=== PATIENT | male | born 1985 | race Caucasian/White ===

== ENCOUNTER 2020-09-05 05:28 | Emergency (ER) | payer MEDICAID ==
[~2020-09-05] VITALS: Ht 185.4 cm; Wt 111.5 kg
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
[2020-09-05 07:09] LABS: BASOPHILS % (AUTO) 1 % (0-1); EOSINOPHILS % (AUTO) 2 % (1-7); LYMPHOCYTES % (AUTO) 37 % (22-44); MEAN CORPUSCULAR HEMOGLOBIN 29.7 pg (27.5-34.5); MEAN CORPUSCULAR HGB CONC 33.8 g/dL (33.2-36.2); MEAN PLATELET VOLUME 7.6 fL (7.4-10.4); MONOCYTES % (AUTO) 8 % (2-9); NEUTROPHILS % (AUTO) 52 % (42-75); PLATELET COUNT 277 x10^3/uL (130-400); RED BLOOD COUNT 5.92 x10^6/uL (4.38-5.82); RED CELL DISTRIBUTION WIDTH 15.1 % (9.4-14.8)
[2020-09-05 07:10] LABS: MD NO
[2020-09-05 07:20] LABS: ALANINE AMINOTRANSFERASE 103 U/L (12-78); ALBUMIN 3.9 g/dL (3.4-5.0); ANION GAP 9 mmol/L (5-15); CALCIUM 8.3 mg/dL (8.5-10.1); CHLORIDE 110 mmol/L (98-107); SALICYLATE LEVEL 4.2 mg/dL (2.8-20.0)
--- NOTE | 2020-09-05 07:30 | NUR ---
pt is still sleeping. no resp. distress. room secure. sitter present for safety
[2020-09-05 07:31] LABS: ALKALINE PHOSPHATASE 54 U/L (45-117); BILIRUBIN,TOTAL 0.2 mg/dL (0.2-1.0); TOTAL PROTEIN 7.5 g/dL (6.4-8.2)
--- NOTE | 2020-09-05 08:00 | NUR ---
no changes. pt continues to sleep
--- NOTE | 2020-09-05 08:30 | NUR ---
pt is sleeping. no resp. distress.
--- NOTE | 2020-09-05 09:00 | NUR ---
no changes. pt sleeping in position of comfort. no apparent distress. room secure. sitter present for safety
--- NOTE | 2020-09-05 09:30 | NUR ---
pt continues sleeping sitter present
--- NOTE | 2020-09-05 10:00 | NUR ---
no changes. pt continues sleeping in position of comfort. room secure. sitter present for safety
--- NOTE | 2020-09-05 11:00 | NUR ---
pt continues sleeping. no apparent distress. room secure. sitter present for safety
--- NOTE | 2020-09-05 12:00 | NUR ---
no changes. pt is still sleeping in position of comfort. no apparent resp. distress. room secure, sitter present for safety
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
--- NOTE | 2020-09-05 13:00 | NUR ---
Dr. Huerta has been updated on pt condition. pt awaiting psych eval meal tray ordered
--- NOTE | 2020-09-05 13:18 | NUR ---
seizure precautions in place. pt updated on POC
--- NOTE | 2020-09-05 13:23 | NUR ---
PROVIDER AT BEDSIDE FOR EVALUATION. SAFETY LUNCH TRAY PROVIDED.
--- NOTE | 2020-09-05 13:39 | NUR ---
psych eval has been to bedside
--- NOTE | 2020-09-05 13:48 | NUR ---
pt has been cleared by psych and is not on a legal hold awating medical clearance by MD report to Gerri SEGOVIA for lunch
--- NOTE | 2020-09-05 13:50 | NUR ---
BREAK RN: PT LAYING RESTLESSLY ON GURNEY WITH EYES CLOSED, NO NEEDS AT THIS TIME, NAD WITH EQUAL CHEST RISE/FALL, PT REMAINS IN SAFE ENVIRONMENT, SITTER IN VIEW.
--- NOTE | 2020-09-05 15:06 | NUR ---
per Dr. Fabian, pt to be D/C. pt updated on POC
--- NOTE | 2020-09-05 15:21 | NUR ---
pt is agitated and requesting sedative prior to D/C. notified
[2020-09-05] MEDS ORDERED: LORazepam 1MG TABLET ONE (15:22)
--- NOTE | 2020-09-05 15:27 | NUR ---
Patient given discharge instructions and they have confirmed that they understand the instructions. Patient ambulatory with steady gait. 2 BELONGING BAGS INCLUDING PHONE AND CREATIVE GURU D/C WITH PATIENT. HIS GIRLFRIEND IS PICKING HIM UP TO STAY WITH HER. HE HAD NO SEIZURE LIKE ACTIVITY BEFORE LEAVING. HE WAS ANSWERING QUESTIONS APPROPRIATELY AND HAD A STEADY GAIT.
[2020-09-05] MEDS ORDERED: LORazepam 1MG TABLET PO ONE (15:30)
[2020-09-05 15:33] VITALS: BP 141/105
--- NOTE | 2020-09-05 15:34 | NUR ---
PT MEDICATED FOR ANXIETY BEFORE D/C.
== END 2020-09-05 15:36 | disposition home or self-care (01) ==
LOC: ED 14:10
DX: F10.220 Alcohol dependence with intoxication, uncomplicated (principal); F32.9 Major depressive disorder, single episode, unspecified; I10 Essential (primary) hypertension; E11.9 Type 2 diabetes mellitus without complications; Y90.0 Blood alcohol level of less than 20 mg/100 ml
CPT/HCPCS: 36415; 80053; 80299; 80320; 80329; 85025; 99285; G0480

== ENCOUNTER 2020-09-06 19:42 | Emergency (ER) | payer MEDICAID ==
[~2020-09-06] VITALS: Ht 182.9 cm; Wt 102.0 kg
[2020-09-06 19:50] VITALS: BP 138/93
--- NOTE | 2020-09-06 19:50 | NUR ---
INITIAL PT CONTACT. BIBA C/O ETOH INTOXICATION AND "WANTING HELP TO STOP DRINKING, I WANT TO GO TO [place]". PT WAS FOUND OUTSIDE OF [place] BY MARIO STATING HE WAS TRYING TO GET DETOX TREATMENT FOR DRINKING. PT STATES HE DRINKS ABOUT 10 PINTS A DAY AND DRANK APPROX 4 DAILY. PT SITTING UPRIGHT ON GURNEY, NAD, VSS. PT DENIES ANY NEEDS AT THIS TIME. CONTINUOUS PULSE OX AND CARDIAC MONITORING IN PLACE. CALL LIGHT IN REACH.
--- NOTE | 2020-09-06 21:18 | NUR ---
UPON ENTRY INTO PT ROOM, PT FOUND TO ACTIVELY SMOKING A CIGARETTE. PT EDUCATED ON DANGER OF SMOKING IN HOSPITAL AND NO SMOKING POLICY OF THE HOSPITAL. SECURITY AT BEDSIDE TO ESCORT PT OUT OF ED WITH D/C PAPERWORK. PT AMBULATORY WITH STEADY GAIT. REFUSED REPEAT VITALS.
== END 2020-09-06 21:21 | disposition home or self-care (01) ==
LOC: ED 21:15
DX: F10.229 Alcohol dependence with intoxication, unspecified (principal); F17.210 Nicotine dependence, cigarettes, uncomplicated; Z72.9 Problem related to lifestyle, unspecified; Y90.0 Blood alcohol level of less than 20 mg/100 ml
CPT/HCPCS: 99283; 99406

== ENCOUNTER 2020-10-11 14:14 | Emergency (ER) | payer MEDICAID ==
[~2020-10-11] VITALS: Ht 182.9 cm; Wt 112.2 kg
[2020-10-11 14:19] VITALS: BP 134/91
--- NOTE | 2020-10-11 14:39 | NUR ---
PT RESTING IN [facility] WITH PINT OF VODKA, THIS RN ASKED PT TO GIVE ME THE BOTTLE, PT SAID "NO ITS MINE" AND PROCEEDED TO DRINK ABOUT 1/4 OF BOTTLE THAT WAS LEFT IN BOTTLE. PER PT "I REALLY WANT TO DETOX".
[2020-10-11] MEDS ORDERED: THIAMINE 100MG TABLET ONE (14:45)
[2020-10-11] MEDS ORDERED: ONDANSETRON ODT 4 MG ONE (14:45)
[2020-10-11] MEDS ORDERED: LORazepam 1MG TABLET ONE (14:45)
[2020-10-11 14:53] LABS: BASOPHILS % (AUTO) 1 % (0-1); EOSINOPHILS % (AUTO) 1 % (1-7); LYMPHOCYTES % (AUTO) 42 % (22-44); MEAN CORPUSCULAR HEMOGLOBIN 29.6 pg (27.5-34.5); MEAN CORPUSCULAR HGB CONC 34.1 g/dL (33.2-36.2); MEAN PLATELET VOLUME 7.5 fL (7.4-10.4); MONOCYTES % (AUTO) 3 % (2-9); NEUTROPHILS % (AUTO) 53 % (42-75); PLATELET COUNT 321 x10^3/uL (130-400); RED CELL DISTRIBUTION WIDTH 14.6 % (9.4-14.8)
[2020-10-11 14:55] LABS: MD NO
[2020-10-11] MEDS ORDERED: LORazepam 1MG TABLET PO ONE (15:00)
[2020-10-11] MEDS ORDERED: ONDANSETRON ODT 4 MG PO ONE (15:00)
[2020-10-11] MEDS ORDERED: THIAMINE 100MG TABLET PO ONE (15:00)
[2020-10-11 15:03] LABS: ALANINE AMINOTRANSFERASE 63 U/L (12-78); ALBUMIN 4.1 g/dL (3.4-5.0); ANION GAP 9 mmol/L (5-15); CALCIUM 8.3 mg/dL (8.5-10.1); CHLORIDE 113 mmol/L (98-107); CREATININE 0.91 mg/dL (0.7-1.3)
[2020-10-11 15:04] LABS: ALKALINE PHOSPHATASE 56 U/L (45-117); BILIRUBIN,TOTAL 0.3 mg/dL (0.2-1.0); TOTAL PROTEIN 8.1 g/dL (6.4-8.2)
--- NOTE | 2020-10-11 15:35 | NUR ---
PT RESTING IN [place] WITH EYES CLOSED, SIDE RAILS UP, CALL LIGHT IN PLACE, NADN AT THIS TIME, WILL CONTINUE TO MONITOR.
--- NOTE | 2020-10-11 16:32 | NUR ---
PT GIVEN DISCHARGE EDUCATION AND INSTRUCTIONS. PT ALSO GIVEN WELL [facility] RESOURCE. PT CUSSING AT THIS RN SAYING "JUST F OFF." PT ALSO REFUSING VITAL SIGNS.
--- NOTE | 2020-10-11 16:40 | NUR ---
PT AMBULATED STEADILY TO LOBBY.
== END 2020-10-11 16:41 | disposition home or self-care (01) ==
LOC: ED 15:36
DX: F10.229 Alcohol dependence with intoxication, unspecified (principal); I10 Essential (primary) hypertension; Y90.9 Presence of alcohol in blood, level not specified
CPT/HCPCS: 36415; 80053; 83690; 85025; 99284; Q0162

== ENCOUNTER 2020-10-11 23:40 | Emergency (ER) | payer MEDICAID ==
[~2020-10-11] VITALS: Ht 182.9 cm; Wt 105.0 kg
[2020-10-11 23:43] VITALS: BP 127/75
--- NOTE | 2020-10-12 00:01 | NUR ---
Pt states he has been drinking heavily for about a month straight. States now he wants to detox. Last drink at 1600 today. Pt states having hx of withdraw sz. Pt currently A&O, calm and cooperative. Pt given warm blankets, and pillow. On monitor. Will monitor.
== END 2020-10-12 00:58 | disposition home or self-care (01) ==
LOC: ED 10-12 00:10
DX: F10.220 Alcohol dependence with intoxication, uncomplicated (principal); I10 Essential (primary) hypertension; F17.290 Nicotine dependence, other tobacco product, uncomplicated; Z72.9 Problem related to lifestyle, unspecified; Y90.9 Presence of alcohol in blood, level not specified
CPT/HCPCS: 99283